=== PATIENT | male | born 1965 | race Caucasian/White ===

== ENCOUNTER 2016-10-14 11:21 | Inpatient (IN) | payer OTHER ==
[2016-10-14] MEDS ORDERED: NS 0.9% 1000 ML* 2,000 ML IV ONE (12:36)
[2016-10-14] MEDS ORDERED: Morphine INJ* 4 MG/ML 1 ML SYRINGE IV ONE (12:37)
[2016-10-14] MEDS ORDERED: Ondansetron INJ* 2 MG/ML VIAL IV ONE (12:37)
[2016-10-14 12:52] LABS: Hematocrit 41 % (42-52); Hemoglobin 14.6 g/dl (14.0-18.0); Mean Corpuscular HGB Conc 35 g/dl (31-36); Mean Corpuscular Hemoglobin 34 pg (27-31); Mean Corpuscular Volume 97 fL (80-94); Mean Platelet Volume 8 um3 (7.4-10.4); Red Blood Count 4.29 10^6/ul (4.0-5.4); Red Cell Distribution Width 14 % (10.5-15); White Blood Count 11.1 10^3/ul (3.5-10.8)
[2016-10-14 13:08] LABS: ALT 10 U/L (7-52); AST 14 U/L (13-39); Albumin 3.9 g/dL (3.2-5.2); Alkaline Phosphatase 56 U/L (34-104); Anion Gap 6 mmol/L (2-11); BUN/Creatinine Ratio 13.5 (8-20); Blood Urea Nitrogen 14 mg/dL (6-24); C Reactive Protein 10.74 mg/L (< 5.00); CO2 Carbon Dioxide 31 mmol/L (22-32); Calcium 9.6 mg/dL (8.6-10.3); Chloride 100 mmol/L (101-111); EGFR African American 96.1 (>60); EGFR Non-African American 74.7 (>60); Globulin 2.7 g/dL (2-4); Glucose 114 mg/dL (70-100); Lipase 19 U/L (11.0-82.0); Magnesium 1.4 mg/dL (1.9-2.7); Potassium 4.3 mmol/L (3.5-5.0); Sodium 137 mmol/L (133-145); Total Protein 6.6 g/dL (6.4-8.9)
[2016-10-14 13:12] LABS: Troponin I 0.05 ng/mL (<0.04)
[2016-10-14] MEDS ORDERED: Iohexol 300* (CONTRAST) 10 ML SDV IV ONE (14:43)
--- NOTE | 2016-10-14 15:49 | RAD ---
CLINICAL HISTORY: Abdominal pain and vomiting. Relevant surgical history includes cholecystectomy. COMPARISON: Multiple previous CT examinations, most recently dated March 14, 2015 TECHNIQUE: Contrast enhanced CT examination of the abdomen and pelvis from the lung bases through the initial tuberosities. The patient received 127 mL Omnipaque 300 intravenously prior to imaging.The patient received oral contrast as well prior to imaging. FINDINGS: VISUALIZED LUNG BASES: The visualized lung bases are grossly clear. There is no pleural effusion. ABDOMEN AND PELVIS: The liver, spleen, pancreas and adrenal glands are grossly normal in appearance. The gallbladder is surgically absent. The kidneys are normal in appearance without focal mass, calcification or signs of hydronephrosis. Evaluation of the gastrointestinal tract is limited without oral contrast. The proximal small bowel is mildly dilated measuring up to 3.3 cm in diameter. In the distal ileum at the right lower quadrant (image 62 on the axial images for example) there is partially gas-filled contents in the small bowel consistent with "fecalization". There appears to be a transition point just distal to this portion of bowel with the small bowel goes from being dilated to decompressed (axial image [id number]). Distally the small bowel is mostly decompressed. The colon is mostly decompressed as well with a small amount of gas and stool throughout the lumen. The distal colon and rectosigmoid colon exhibits innumerable diverticula but no focal inflammatory changes characteristic of acute diverticulitis. There is distention of the mesenteric root and infiltration of the mesenteric fat potentially creating the appearance of a "comb sign" (coronal image 40 through 44). There is trace ascites in the pelvis adjacent to the mildly dilated small bowel (for example axial image 44) and in the pelvis (axial image 72). There are no pathologically enlarged mesenteric or retroperitoneal lymph nodes. The pelvic viscera is normal in appearance. The mildly calcified abdominal aorta and iliac arteries are normal in course and diameter. Degenerative changes include multilevel loss of intervertebral disc height involving the lower thoracic and lumbar spine.There are no sinister bone lesions. IMPRESSION: 1. Mild proximal small bowel dilatation with a potential transition point identified at the right of midline lower abdomen as described in more detail in the body the report. Proximal to this transition point there is mild dilatation as well as "fecalization" of the distal small bowel contents. 2. Inflammatory change of the peritoneal cavity includes distention of the mesenteric root and trace ascites. Infectious or inflammatory etiologies should be considered in addition to partial small bowel obstruction. 3. Additional chronic, degenerative and iatrogenic changes described in the body of the report.
[2016-10-14 15:58] LABS: Urine Bilirubin Negative (Negative); Urine Glucose Negative (Negative); Urine Nitrite Negative (Negative)
[2016-10-14] MEDS ORDERED: Magnesium Sulf 4 GM/100 ML IV* 4,000 MG/100 ML BAG IVPB ONE (16:00)
[2016-10-14 16:28] LABS: Alcohol < 10 mg/dL (<10)
--- NOTE | 2016-10-14 16:30 | ED ---
Jose Enrique Unger Benjamin, scribed for Arnol Rojas MD on 10/14/16 at 1148 . Abdominal Pain/Male - HPI Summary HPI Summary: 51yo male c/o diffuse abdominal pain since yesterday. Pt states that the pain is 6/10 scale, and is mostly in the umbilical area that radiates down to suprapubic region. Pt has vomited up brown liquidly vomits since yesterday as well. Did not pass any gas, but reports having a BM in the middle of the night. PSMHx of osvaldo, hiatal hernia repair, and PMHx of diverticulitis and SBO. Appendix is still intact. - History of Current Complaint Chief Complaint: EDAbdPain Stated Complaint: ABD PAIN,VOMITING Time Seen by Provider: 10/14/16 11:28 Hx Obtained From: Patient Onset/Duration: Gradual Onset, Lasting Hours, Still Present Timing: Constant Severity Initially: Moderate Severity Currently: Moderate Pain Intensity: 6 Pain Scale Used: 0-10 Numeric Location: Umbilical Radiates: Yes Radiates to: Other - suprapubic Aggravating Factor(s): Nothing Alleviating Factor(s): Nothing Associated Signs And Symptoms: Positive: Diaphoresis, Vomiting - Allergies/Home Medications Allergies/Adverse Reactions: Allergies Allergy/AdvReac Type Severity Reaction Status Date / Time Barium Allergy Severe HIVES AND Verified 10/14/16 11:37 VOMITING Foll[place]bee Blue FCF Allergy Severe Swelling Verified 10/14/16 13:01 [From Tylenol Cold and Flu Of Severe Daytime] Face,Lips,& Throat Dextromethorphan Allergy Severe Swelling Verified 10/14/16 13:02 [From Tylenol Cold and Flu Of Severe Daytime] Face,Lips,& Throat Polyethylene Glycol Allergy Severe Swelling Verified 10/14/16 13:02 [From Tylenol Cold and Flu Of Severe Daytime] Face,Lips,& Throat Propylene Glycol Allergy Severe Swelling Verified 10/14/16 13:02 [From Tylenol Cold and Flu Of Severe Daytime] Face,Lips,& Throat Pseudoephedrine Allergy Severe Swelling Verified 10/14/16 13:01 [From Tylenol Cold and Flu Of Severe Daytime] Face,Lips,& Throat Sulfa Drugs Allergy Severe Anaphylatic Verified 10/14/16 11:37 Shock Hydromorphone [From Dilaudid] Allergy Difficulty Verified 10/14/16 11:37 Swallowing PMH/Surg Hx/FS Hx/Imm Hx Endocrine/Hematology History: Denies: Hx Diabetes Cardiovascular History: Reports: Hx Angina, Hx Congestive Heart Failure, Hx Hypercholesterolemia, Hx Hypertension, Hx Myocardial Infarction - WAAS TOLD HE HAD SCARRING ON HEART, Hx Syncope, Hx Valvular Heart Disease - mitral valve prolapse, Other Cardiovascular Problems/Disorders - "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 Respiratory History: Reports: Hx Chronic Obstructive Pulmonary Disease (COPD) GI History: Reports: Hx Diverticulosis, Hx Gall Bladder Disease, Hx Gastroesophageal Reflux Disease, Hx Ulcer, Other GI Disorders - diverticulousis , cholecystectomy, hernia repair, SBO History: Reports: Hx Kidney Stones Denies: Hx Renal Disease Musculoskeletal History: Reports: Hx Arthritis - rheumatoid, Hx Rheumatoid Arthritis, Other Musculoskeletal History - hx gangrene bilateral lower extremities Sensory History: Reports: Hx Cataracts - removed, Hx Contacts or Glasses Opthamlomology History: Reports: Hx Cataracts - removed, Hx Contacts or Glasses Neurological History: Reports: Hx Migraine, Hx Nerve Disease Comment Only: Other Neuro Impairments/Disorders - subdural hematoma Psychiatric History: Reports: Hx Anxiety, Hx Depression - Cancer History Cancer Type, Location and Year: 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, 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 Hx Chemotherapy: No - Surgical History Surgery Procedure, Year, and Place: debridemant on both legs, cholecystectomy, hernia repair, cataract on both eyes Infectious Disease History: Denies: Hx Clostridium Difficile, Hx Hepatitis, Hx Human Immunodeficiency Virus (HIV), Hx of Known/Suspected MRSA, Hx Shingles, Hx Tuberculosis, Hx Known/ Suspected VRE, Hx Known/Suspected VRSA, History Other Infectious Disease, Traveled Outside the [place] in Last 30 Days - Family History Known Family History: Positive: Cardiac Disease, Diabetes - possibly Negative: Hypertension - Social History Occupation: Disabled Lives: With Family Alcohol Use: Daily Alcohol Amount: one-fifth whiskey, case beer, vodka drinks q day Substance Use Type: Reports: None Smoking Status (MU): Heavy Every Day Tobacco Smoker Review of Systems Positive: Skin Diaphoresis Eyes: Negative ENT: Negative Cardiovascular: Negative Respiratory: Negative Positive: Abdominal Pain, Vomiting Genitourinary: Negative Musculoskeletal: Negative Skin: Negative Neurological: Negative Psychological: Normal All Other Systems Reviewed And Are Negative: Yes Physical Exam Triage Information Reviewed: Yes Vital Signs On Initial Exam: Initial Vitals Temp Pulse Resp BP Pulse Ox 97.4 F 88 16 128/76 99 10/14/16 11:23 10/14/16 11:23 10/14/16 11:23 10/14/16 11:23 10/14/16 11:23 Vital Signs Reviewed: Yes Appearance: Positive: Well-Nourished, Ill-Appearing, Pain Distress - mild pain distress Skin: Positive: Warm, Skin Color Reflects Adequate Perfusion, Dry Head/Face: Positive: Normal Head/Face Inspection Eyes: Positive: Normal ENT: Positive: Normal ENT inspection, Hearing grossly normal Neck: Positive: Supple, Nontender Respiratory/Lung Sounds: Positive: Clear to Auscultation, Breath Sounds Present Cardiovascular: Positive: RRR Abdomen Description: Positive: Soft, Other: - tympanitic abdomen, diffuse abdominal tenderness Bowel Sounds: Positive: Hyperactive - high pitch hyperactive bowel sounds Musculoskeletal: Positive: Strength/ROM Intact Neurological: Positive: Sensory/Motor Intact, Alert, Oriented to Person Place, Time, CN Intact II-III Psychiatric: Positive: Affect/Mood Appropriate Diagnostics - Vital Signs Vital Signs Temp Pulse Resp BP Pulse Ox 10/14/16 11:23 97.4 F 88 16 128/76 99 - Laboratory Lab Results: Lab Results 10/14/16 10/14/16 10/14/16 Range/Units 12:42 12:42 12:42 WBC 11.1 H (3.5-10.8) 10^3/ul RBC 4.29 (4.0-5.4) 10^6/ul Hgb 14.6 (14.0-18.0) g/dl Hct 41 L (42-52) % MCV 97 H (80-94) fL MCH 34 H (27-31) pg MCHC 35 (31-36) g/dl RDW 14 (10.5-15) % Plt Count 182 (150-450) 10^3/ul MPV 8 (7.4-10.4) um3 Neut % (Auto) 80.7 (38-83) % Lymph % (Auto) 12.2 L (25-47) % [place] % (Auto) 6.1 (1-9) % Eos % (Auto) 0.4 (0-6) % Baso % (Auto) 0.6 (0-2) % Absolute Neuts (auto) 8.9 H (1.5-7.7) 10^3/ul Absolute Lymphs (auto) 1.3 (1.0-4.8) 10^3/ul Absolute Monos (auto) 0.7 (0-0.8) 10^3/ul Absolute Eos (auto) 0 (0-0.6) 10^3/ul Absolute Basos (auto) 0.1 (0-0.2) 10^3/ul Absolute Nucleated RBC 0 10^3/ul Nucleated RBC % 0 INR (Anticoag Therapy) 1.06 (0.89-1.11) APTT 27.8 (26.0-36.3) seconds Sodium 137 (133-145) mmol/L Potassium 4.3 (3.5-5.0) mmol/L Chloride 100 L (101-111) mmol/L Carbon Dioxide 31 (22-32) mmol/L Anion Gap 6 (2-11) mmol/L BUN 14 (6-24) mg/dL Creatinine 1.04 (0.67-1.17) mg/dL Est GFR ( Amer) 96.1 (>60) Est GFR (Non-Af Amer) 74.7 (>60) BUN/Creatinine Ratio 13.5 (8-20) Glucose 114 H (70-100) mg/dL Lactic Acid (0.5-2.0) mmol/L Calcium 9.6 (8.6-10.3) mg/dL Magnesium 1.4 L (1.9-2.7) mg/dL Total Bilirubin 1.20 H (0.2-1.0) mg/dL AST 14 (13-39) U/L ALT 10 (7-52) U/L Alkaline Phosphatase 56 (34-104) U/L Troponin I 0.05 H* (<0.04) ng/mL C-Reactive Protein 10.74 H (< 5.00) mg/L Total Protein 6.6 (6.4-8.9) g/dL Albumin 3.9 (3.2-5.2) g/dL Globulin 2.7 (2-4) g/dL Albumin/Globulin Ratio 1.4 (1-3) Lipase 19 (11.0-82.0) U/L Urine Color Urine Appearance Urine pH (5-9) Ur Specific [place] (1.010-1.030) Urine Protein (Negative) Urine Ketones (Negative) Urine Blood (Negative) Urine Nitrate (Negative) Urine Bilirubin (Negative) Urine Urobilinogen (Negative) Ur Leukocyte Esterase (Negative) Urine Glucose (Negative) Serum Alcohol < 10 (<10) mg/dL 10/14/16 10/14/16 Range/Units 12:42 15:50 WBC (3.5-10.8) 10^3/ul RBC (4.0-5.4) 10^6/ul Hgb (14.0-18.0) g/dl Hct (42-52) % MCV (80-94) fL MCH (27-31) pg MCHC (31-36) g/dl RDW (10.5-15) % Plt Count (150-450) 10^3/ul MPV (7.4-10.4) um3 Neut % (Auto) (38-83) % Lymph % (Auto) (25-47) % [place] % (Auto) (1-9) % Eos % (Auto) (0-6) % Baso % (Auto) (0-2) % Absolute Neuts (auto) (1.5-7.7) 10^3/ul Absolute Lymphs (auto) (1.0-4.8) 10^3/ul Absolute Monos (auto) (0-0.8) 10^3/ul Absolute Eos (auto) (0-0.6) 10^3/ul Absolute Basos (auto) (0-0.2) 10^3/ul Absolute Nucleated RBC 10^3/ul Nucleated RBC % INR (Anticoag Therapy) (0.89-1.11) APTT (26.0-36.3) seconds Sodium (133-145) mmol/L Potassium (3.5-5.0) mmol/L Chloride (101-111) mmol/L Carbon Dioxide (22-32) mmol/L Anion Gap (2-11) mmol/L BUN (6-24) mg/dL Creatinine (0.67-1.17) mg/dL Est GFR ( Amer) (>60) Est GFR (Non-Af Amer) (>60) BUN/Creatinine Ratio (8-20) Glucose (70-100) mg/dL Lactic Acid 1.0 (0.5-2.0) mmol/L Calcium (8.6-10.3) mg/dL Magnesium (1.9-2.7) mg/dL Total Bilirubin (0.2-1.0) mg/dL AST (13-39) U/L ALT (7-52) U/L Alkaline Phosphatase (34-104) U/L Troponin I (<0.04) ng/mL C-Reactive Protein (< 5.00) mg/L Total Protein (6.4-8.9) g/dL Albumin (3.2-5.2) g/dL Globulin (2-4) g/dL Albumin/Globulin Ratio (1-3) Lipase (11.0-82.0) U/L Urine Color Straw Urine Appearance Clear Urine pH 7.0 (5-9) Ur Specific [place] 1.024 (1.010-1.030) Urine Protein Negative (Negative) Urine Ketones Negative (Negative) Urine Blood Negative (Negative) Urine Nitrate Negative (Negative) Urine Bilirubin Negative (Negative) Urine Urobilinogen Negative (Negative) Ur Leukocyte Esterase Negative (Negative) Urine Glucose Negative (Negative) Serum Alcohol (<10) mg/dL Result Diagrams: 10/14/16 12:42 10/14/16 12:42 Lab Statement: Any lab studies that have been ordered have been reviewed, and results considered in the medical decision making process. - CT CT A/P W CT Interpretation: Positive (See Comments) - IMPRESSION: 1. Mild proximal small bowel dilatation with a potential transition point identified at the right of midline lower abdomen as described in more detail in the body the report. Proximal to this transition point there is mild dilatation as well as "fecalization" of the distal small bowel contents. 2. Inflammatory change of the peritoneal cavity includes distention of the mesenteric root and trace ascites. Infectious or inflammatory etiologies should be considered in addition to partial small bowel obstruction. 3. Additional chronic, degenerative and iatrogenic changes described in the body of the report. CT Interpretation Completed By: Radiologist Abdominal Pain Fem Course/Dx - Course Course Of Treatment: NO CRITICAL CARE TIME. ADMIT HOSPITALIST STABLE. - Diagnoses Provider Diagnoses: SBO (small bowel obstruction) Discharge - Discharge Plan Condition: Stable Disposition: ADMITTED TO [facility] Referrals: Luis MILNER,Micki [Primary Care Provider] - The documentation as recorded by the Jose Enrique pereira Benjamin accurately reflects the service I personally performed and the decisions made by me, Arnol Rojas MD.
[2016-10-14] MEDS ORDERED: Thiamine IV* 100 MG/ML 2 ML VIAL IM ONE (16:33)
[2016-10-14] MEDS ORDERED: Diazepam TAB(*) 10 MG PO PRN (16:33)
[2016-10-14] MEDS ORDERED: Albuterol HFA INHALER* 8 gm MDI INH PRN (16:35)
[2016-10-14] MEDS: Latanoprost 0.005%* 2.5 ml BTL LEFT EYE SCH (21:10)
[2016-10-14] MEDS: Timolol 0.5% OPTH.SOL* BTL BOTH EYES SCH (21:10)
[2016-10-14] MEDS: Ondansetron INJ* 2 MG/ML VIAL IV PRN (21:11)
[2016-10-14] MEDS: Morphine INJ* 2 MG/ML 1 ML SYRINGE IV PRN (21:11)
[2016-10-14] MEDS: Heparin VIAL(*) 5000 UNITS/ML VIAL (FIVE THOUSAND) SUBCUT SCH (21:19)
--- NOTE | 2016-10-15 02:13 | HP ---
CC: Micki Smith NP* ADMISSION HISTORY AND PHYSICAL: DATE OF ADMISSION: 10/14/16 PRIMARY CARE PROVIDER: Micki Smith NP HEALTHCARE PROXY: Mora, his girlfriend. CODE STATUS: Full. SOURCE OF INFORMATION: History obtained from interview with the patient and his girlfriend, review of recent past medical records. RELIABILITY: Fair from the patient and his girlfriend, excellent from records. CHIEF COMPLAINT: Abdominal pain, nausea, and vomiting. 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 Now, he is drinking 24 ounce cans of canned llanes coladas until the night prior to admission, developed worsening abdominal pain, epigastric in region, radiating down towards his pelvis, described as sharp, lasting for 1 to 20 minutes with associated frequent vomiting of brown emesis. The patient was unable to put a number as to how many times he has vomited. His last bowel movement was the day prior to presentation. His last flatus was the day prior to presentation. He tried to take an oxycodone that he had in his home, however, was unable to tolerate, vomited up, and had continued pain. He has noticed his pain felt similar to the past episodes of diverticulitis, however, more severe. His last food that he tolerated was yesterday afternoon and he has not had much. He denies any fevers, chills, or night sweats. Positive for nausea, vomiting, and abdominal pain. No chest pain which he has experienced in the past. No shortness of breath, lightheadedness, loss of consciousness, changes in vision, or bleeding from any source. PAST MEDICAL HISTORY: 1. Narcotic withdrawal. 2. Alcohol abuse with recent withdrawal. 3. Suspected COPD on previous presentations. 4. BPH. 5. Glaucoma. 6. Hypertension. 7. Anxiety. 8. GERD. 9. CAD with history of MD reported. 10. Rheumatoid arthritis. 11. Neuropathy. 12. 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 13. Diverticulitis. PAST SURGICAL HISTORY: Includes: 1. Lower extremity surgery secondary to gangrene. 2. Cataract surgery. 3. Hernia repair. 4. Cholecystectomy. MEDICATIONS: At discharge from last hospital stay included: 1. Flexeril 10 mg 3 times daily as needed. 2. Potassium chloride 10 mEq twice daily. 3. Timolol eye drops 2 drops both eyes twice daily. 4. Omeprazole 40 mg daily. 5. Travoprost 1 drop left eye at bedtime. 6. Flomax 0.4 mg daily. 7. Xanax 1 mg 3 times a day as needed for anxiety. 8. Meclizine 25 mg 4 times a day as needed for dizziness. 9. Imodium 2 mg after each loose stool. 10. Albuterol HFA 2 puffs inhaled every 4 hours as needed for shortness of breath. The patient does not endorse any changes to medications since last discharge. ALLERGIES: BARIUM, BRILLIANT BLUE FCF, DEXTROMETHORPHAN, TYLENOL COLD AND FLU, also including POLYETHYLENE GLYCOL, PSEUDOEPHEDRINE, SULFA DRUGS, and HYDROMORPHONE, although tolerates morphine. FAMILY HISTORY: Father with CAD. SOCIAL HISTORY: Smokes one half pack per day for the last 35 years. Heavy alcohol use. Denies any alcohol in the last 1 to 2 weeks. Previous opioid use disorder, unclear quantity, still consumes, it is unclear how much he is still consuming. REVIEW OF SYSTEMS: As per HPI. Otherwise, all other systems negative. PHYSICAL EXAMINATION GENERAL: Sitting up in bed, grossly tremulous, in no apparent distress. He is diaphoretic. VITAL SIGNS: In the emergency room, 124/73, heart rate 72, respiratory rate is 18, 96% on room air, T-max in the emergency room 97.4. HEENT: Oropharynx is clear. He has poor dentition. Moist mucous membranes. Sclerae are anicteric. NECK: Non-elevated JVD. LUNGS: Clear to auscultation. HEART: He has regular rate and rhythm. Soft systolic ejection murmur. ABDOMEN: Soft. He has tenderness to palpation in the left lower quadrant. He is nondistended. He has hypoactive bowel sounds. No rebound or guarding. EXTREMITIES: Warm and well perfused. No clubbing, cyanosis, or edema. NEUROLOGIC: He is alert and oriented x3. He has gross tremor in his arms at rest and with them outstretched. LABORATORY DATA: Reviewed. Notable for white blood cell count of 11.1, hemoglobin 14.6. INR 1.0. BUN 14, creatinine 1.04. Troponin I 0.05. CRP 10.7. Serum toxicology negative for alcohol. DIAGNOSTIC STUDIES: Data reviewed. CT abdomen and pelvis, impression: Mild proximal small bowel dilatation with a potential transition point identified at the right of the midline. Lower abdomen is described in more detail in the body of the report. Proximal to the transition point, there is mild dilatation as well as "fecalization" of the distal small bowel contents. Inflammatory change at the peritoneal cavity includes distention of the mesenteric root and trace ascites. Infectious or inflammatory etiology should be considered in addition to the small bowel obstruction. Additional chronic, degenerative and iatrogenic changes in the body are reported. EKG is ordered urgently and pending in the ED to be reviewed by this author. ASSESSMENT AND PLAN: This is a 51-year-old man with past medical history of chronic abdominal pain, with recurrent nausea and vomiting, normal gastric emptying study in April 2016, felt worsening abdominal pain with associated nausea and vomiting who presented to the hospital with suspected partial small bowel obstruction. 1. Abdominal pain, suspect in the setting of his partial small bowel obstruction, although there is some evidence of inflammation on the CAT scan. No evidence of infection or inflammation systemically other than mildly elevated white blood cell count and CRP. We will hold on antibiotics at this time and monitor for resolution of white blood cell count and development of any fevers. The patient will be n.p.o. for small bowel obstruction with morphine as needed for pain and Zofran IV as well for nausea. We will obtain a surgical consultation to follow his care should he progress to need surgical intervention. 2. Elevated troponin. Suspect demand in the setting of partial small bowel obstruction. Check EKG now and trend to resolution. 3. Alcohol dependence and abuse. Suspect withdrawal at this time in the setting of active use and gross tremor. Place the patient on a WAM protocol with diazepam IV. Titrate if possible. Additional cessation counseling is offered. 4. Suspected chronic obstructive pulmonary disease, not uncontrolled on medications. Albuterol p.r.n. as needed. Not in exacerbation. 5. Glaucoma. Continue eye drops as per home medications. 6. DVT prophylaxis: Heparin subcu. 7. Code status is full. [id number]/CPS #: [id number] [id number]
[2016-10-15] MEDS: Morphine INJ* 2 MG/ML 1 ML SYRINGE IV PRN ×3 (03:17→13:57)
[2016-10-15] MEDS: Diazepam TAB(*) 2 MG PO PRN (03:35)
--- NOTE | 2016-10-15 04:11 | CONS ---
CC: Micki Smith NP, [facility] * CONSULTATION REPORT: DATE OF CONSULT/DICTATION: 10/14/16 REFERRING PROVIDER: Dr. Ino Alfaro. REASON FOR CONSULTATION: Abdominal pain, nausea and vomiting. HISTORY OF PRESENT ILLNESS: Mr. Uriel Bates is a 51-year-old gentleman with multiple medical issues, is somewhat of a poor historian, who presented to the emergency room with 24 hours of abdominal pain as well as nausea and vomiting. He has a history of significant heavy alcohol abuse and also has problems with apparent cyclic vomiting. He has undergone a gastric emptying study earlier this year, which was unremarkable and this was ordered by Dr. Karla Rivera from the [facility], software support specialist. He states he obviously has problems with nausea and vomiting; however, since yesterday he has had some more consistent vomiting with solid food and some brown liquid. He states he had a bowel movement last night, passed gas early this morning, the last he has done of that. He feels this is different than his usual illness and he presented to the emergency room. He has had no fevers, shakes, or chills. He has had no urinary complaints, but there is no back discomfort. When seen in the emergency room, he was noted to be afebrile with normal vital signs. White blood cell count was 11,000 with a hemoglobin of 14. Electrolytes were within normal limits. Total bilirubin 1.2 with normal liver transaminase. He had mild elevation of his troponin to 0.05. C-reactive protein 10.75. Lipase was normal. He underwent a CT scan of the abdomen and pelvis. I did review this study. This was done with both oral and IV contrast. This does show some mild proximal small bowel dilation with a concern for possible transition point in the right lower middle of the abdomen. Also noted is what is described as "fecalization" in the small bowel in the area of this possible transition zone. There is a small amount of free pelvic fluid. No other acute findings were noted. The patient is being admitted to the hospitalist service and surgical consultation was obtained. It should be noted that the majority of the history is obtained from the previous records as the patient is quite a poor historian. PAST MEDICAL HISTORY: 1. Ethanol abuse. 2. Hypertension. 3. Anxiety. 4. Glaucoma. 5. Gastroesophageal reflux disease. 6. History of myocardial infarction. 7. Rheumatoid arthritis. 8. Neuropathy. 9. History of obstructive lung disease. PAST SURGICAL HISTORY: Laparoscopic cholecystectomy. He has also had infection in both lower extremities for an incision and drainage of abscesses. ALLERGIES: He is allergic to BARIUM, TYLENOL COLD and FLU, SULFA DRUGS, and DILAUDID. MEDICINES AT HOME: Include: 1. Compazine. 2. Prilosec. 3. Meclizine. 4. Prinivil. 5. Zyrtec. 6. Ventolin. 7. Xanax. SOCIAL HISTORY: He lives alone. He smokes. Drinks alcohol, but states he has abstained over the past several weeks. REVIEW OF SYSTEMS: Otherwise is difficult to obtain from the patient as he is a poor historian. PHYSICAL EXAMINATION: Temperature 98.1, pulse 68, blood pressure 122/81. In general, he is an unkempt male with a slight intention tremor. He is awake, alert and oriented to person, place, and time. His lungs were clear to auscultation with normal respiratory effort. Heart was regular rate and rhythm without murmurs, rubs, or gallops. Abdomen is soft, slightly distended. He has a laparoscopic incision in the upper right abdomen without hernias. He had bowel sounds that are normoactive throughout. They are not high pitched or tinkling. He has some mild generalized abdominal tenderness without rebound, guarding, peritoneal signs. I appreciate no hernias. IMPRESSION: Abdominal pain with nausea and vomiting. He apparently has problems with nausea and has undergone extensive workup from a software support specialist at the [facility]. We do not have these records and I am not certain when his last colonoscopy was. CT scan does show concern for some proximally dilated small bowel with some fecalization, which may be indicative of a small bowel obstruction. Certainly this could be due to adhesions, although this appears to be lower in the abdomen from what would be expected from a laparoscopic approach, but certainly this could be a primary issue. There does not appear to be a mass or small bowel abnormality to suggest otherwise. PLAN: 1. The patient has been admitted to the medical service. 2. He has been kept NPO and started on IV fluids. 3. Nasogastric tube will not be inserted unless he has problems with nausea or persistent vomiting. 4. Repeat laboratory values and abdominal x-rays on a daily basis. At this point, he does not have an indication for any urgent or emergent surgical indication, but we will follow him closely over the next several days, and hopefully, this will resolve with nonoperative management. [id number]/[facility] #: [id number] KYREE
[2016-10-15] MEDS: Heparin VIAL(*) 5000 UNITS/ML VIAL (FIVE THOUSAND) SUBCUT SCH ×3 (05:46→22:13)
[2016-10-15] MEDS: NS 0.9% 1000 ML* 1,000 ML IV SCH ×2 (05:46→22:10)
[2016-10-15] MEDS: Ondansetron INJ* 2 MG/ML VIAL IV PRN (06:03)
[2016-10-15 06:23] LABS: Hematocrit 40 % (42-52); Hemoglobin 13.8 g/dl (14.0-18.0); Mean Corpuscular HGB Conc 35 g/dl (31-36); Mean Corpuscular Hemoglobin 34 pg (27-31); Mean Corpuscular Volume 99 fL (80-94); Mean Platelet Volume 9 um3 (7.4-10.4); Red Blood Count 4.05 10^6/ul (4.0-5.4); Red Cell Distribution Width 14 % (10.5-15); White Blood Count 10.6 10^3/ul (3.5-10.8)
[2016-10-15 06:37] LABS: BUN/Creatinine Ratio 16.3 (8-20); Calcium 9.2 mg/dL (8.6-10.3); EGFR African American 102.9 (>60); Potassium 3.7 mmol/L (3.5-5.0)
[2016-10-15] MEDS: Pantoprazole IV* 40 MG IV SCH (06:45)
--- NOTE | 2016-10-15 09:42 | RAD ---
INDICATION: Small bowel obstruction COMPARISON: CT October 14, 2016 TECHNIQUE: Erect and supine views of the abdomen are submitted. FINDINGS: Bones: There are no acute bony findings. Soft tissues: The soft tissues appear normal. The psoas margins are sharp. Bowel gas pattern: There are fluid-filled loops of small bowel with scattered air-fluid levels. There is residual contrast within the colon. Findings are compatible with a partial small bowel obstruction. Calcifications: There are no abnormal calcifications. Other: None IMPRESSION: PARTIAL SMALL BOWEL OBSTRUCTION. NO SIGNIFICANT RADIOGRAPHIC CHANGE RELATIVE TO THE BOILER SETTER FILM FROM THE CT FROM THE PREVIOUS DAY.
[2016-10-15] MEDS: Multivitamins/Minerals TAB PO SCH (10:27)
[2016-10-15] MEDS: Timolol 0.5% OPTH.SOL* BTL BOTH EYES SCH ×2 (10:27→22:16)
--- NOTE | 2016-10-15 13:06 | PN ---
Progress Note - Progress Note Date of Service: 10/15/16 SOAP: Subjective: Having less abdominal pain but has had no BM or flatus Had a small amount of emesis earlier this morning-"about a cup" of dark fluid Ambulating in the halls Objective: Temp Pulse Resp BP Pulse Ox 98.0 F 59 16 110/69 96 10/15/16 11:00 10/15/16 11:00 10/15/16 11:00 10/15/16 11:00 10/15/16 11:00 PEX: Comfortable Abd is soft and slightly distended. Bowel sounds are present and are hyperactive but not high pitched or tinkling. He has some mild generalized tenderness without guarding or rebound. AXR shows contrast into the large intestine with some dilated loops of small bowel. Assessment: Partial small bowel obstruction Plan: Continue observation for now-keep NPO and will check AXR in AM No indication for surgical intervention at present.
--- NOTE | 2016-10-15 17:50 | PN ---
Subjective Date of Service: 10/15/16 Interval History: seen and examined mild abdominal pain vomiting x 1 since admission but none this AM no BM, no flatus Objective Active Medications: Albuterol (Ventolin Hfa Inhaler*) 2 puff INH Q4H PRN PRN Reason: SOB/WHEEZING Diazepam (Valium Tab(*)) 0 mg PO .PER WAM SCORE PRN; Protocol PRN Reason: AGITATION Last Admin: 10/15/16 03:35 Dose: 2 mg Heparin Sodium (Porcine) (Heparin Vial(*)) 5,000 units SUBCUT Q8HR [facility] Last Admin: 10/15/16 13:58 Dose: 5,000 units Sodium Chloride (Ns 0.9% 1000 Ml*) 1,000 mls @ 75 mls/hr IV PER RATE [facility] Last Admin: 10/15/16 05:46 Dose: 75 mls/hr Latanoprost (Xalatan 0.005%*) 1 drop LEFT EYE BEDTIME JOSE PRN Reason: Protocol Last Admin: 10/14/16 21:10 Dose: 1 drop Morphine Sulfate (Morphine Inj (Syringe)*) 2 mg IV Q4H PRN PRN Reason: PAIN Last Admin: 10/15/16 13:57 Dose: 2 mg Multivitamins/Minerals (Theragran/Minerals Tab*) 1 tab PO DAILY [facility] Last Admin: 10/15/16 10:27 Dose: 1 tab Ondansetron HCl (Zofran Inj*) 4 mg IV Q4H PRN PRN Reason: NAUSEA/VOMITING Last Admin: 10/15/16 06:03 Dose: 4 mg Pantoprazole Sodium (Protonix Iv*) 40 mg IV Q24H [facility] Last Admin: 10/15/16 06:45 Dose: 40 mg Timolol Maleate (Timoptic 0.5% Opth*) 2 drop BOTH EYES BID [facility] Last Admin: 10/15/16 10:27 Dose: 2 drop Vital Signs 10/15/16 10/15/16 10/15/16 11:00 13:50 13:57 Temperature 98.0 F 98.7 F Pulse Rate 59 56 Respiratory 16 16 16 Rate Blood Pressure 110/69 113/66 (mmHg) O2 Sat by Pulse 96 97 Oximetry 10/15/16 10/15/16 14:57 15:49 Temperature 98.5 F Pulse Rate 62 Respiratory 16 22 Rate Blood Pressure 124/67 (mmHg) O2 Sat by Pulse 97 Oximetry Oxygen Devices in Use Now: None Appearance: tremulous, NAD Eyes: No Scleral Icterus, PERRLA Ears/Nose/Mouth/Throat: Clear Oropharnyx, Mucous Membranes Moist Neck: NL Appearance and Movements; NL JVP, Trachea Midline Respiratory: Symmetrical Chest Expansion and Respiratory Effort, Clear to Auscultation Cardiovascular: RRR Abdominal: - - soft, mild distention, +bs, no rebound/guarding Extremities: No Edema Skin: No Rash or Ulcers Neurological: Alert and Oriented x 3 Result Diagrams: 10/15/16 05:46 10/15/16 05:45 Additional Lab and Data: Lab Results 10/14/16 10/14/16 10/14/16 Range/Units 12:42 12:42 12:42 WBC 11.1 H (3.5-10.8) 10^3/ul RBC 4.29 (4.0-5.4) 10^6/ul Hgb 14.6 (14.0-18.0) g/dl Hct 41 L (42-52) % MCV 97 H (80-94) fL MCH 34 H (27-31) pg MCHC 35 (31-36) g/dl RDW 14 (10.5-15) % Plt Count 182 (150-450) 10^3/ul MPV 8 (7.4-10.4) um3 Neut % (Auto) 80.7 (38-83) % Lymph % (Auto) 12.2 L (25-47) % [place] % (Auto) 6.1 (1-9) % Eos % (Auto) 0.4 (0-6) % Baso % (Auto) 0.6 (0-2) % Absolute Neuts (auto) 8.9 H (1.5-7.7) 10^3/ul Absolute Lymphs (auto) 1.3 (1.0-4.8) 10^3/ul Absolute Monos (auto) 0.7 (0-0.8) 10^3/ul Absolute Eos (auto) 0 (0-0.6) 10^3/ul Absolute Basos (auto) 0.1 (0-0.2) 10^3/ul Absolute Nucleated RBC 0 10^3/ul Nucleated RBC % 0 INR (Anticoag Therapy) 1.06 (0.89-1.11) APTT 27.8 (26.0-36.3) seconds Sodium 137 (133-145) mmol/L Potassium 4.3 (3.5-5.0) mmol/L Chloride 100 L (101-111) mmol/L Carbon Dioxide 31 (22-32) mmol/L Anion Gap 6 (2-11) mmol/L BUN 14 (6-24) mg/dL Creatinine 1.04 (0.67-1.17) mg/dL Est GFR ( Amer) 96.1 (>60) Est GFR (Non-Af Amer) 74.7 (>60) BUN/Creatinine Ratio 13.5 (8-20) Glucose 114 H (70-100) mg/dL Lactic Acid (0.5-2.0) mmol/L Calcium 9.6 (8.6-10.3) mg/dL Magnesium 1.4 L (1.9-2.7) mg/dL Total Bilirubin 1.20 H (0.2-1.0) mg/dL AST 14 (13-39) U/L ALT 10 (7-52) U/L Alkaline Phosphatase 56 (34-104) U/L Troponin I 0.05 H* (<0.04) ng/mL C-Reactive Protein 10.74 H (< 5.00) mg/L Total Protein 6.6 (6.4-8.9) g/dL Albumin 3.9 (3.2-5.2) g/dL Globulin 2.7 (2-4) g/dL Albumin/Globulin Ratio 1.4 (1-3) Lipase 19 (11.0-82.0) U/L Urine Color Urine Appearance Urine pH (5-9) Ur Specific [place] (1.010-1.030) Urine Protein (Negative) Urine Ketones (Negative) Urine Blood (Negative) Urine Nitrate (Negative) Urine Bilirubin (Negative) Urine Urobilinogen (Negative) Ur Leukocyte Esterase (Negative) Urine Glucose (Negative) Serum Alcohol < 10 (<10) mg/dL 10/14/16 10/14/16 Range/Units 12:42 15:50 WBC (3.5-10.8) 10^3/ul RBC (4.0-5.4) 10^6/ul Hgb (14.0-18.0) g/dl Hct (42-52) % MCV (80-94) fL MCH (27-31) pg MCHC (31-36) g/dl RDW (10.5-15) % Plt Count (150-450) 10^3/ul MPV (7.4-10.4) um3 Neut % (Auto) (38-83) % Lymph % (Auto) (25-47) % [place] % (Auto) (1-9) % Eos % (Auto) (0-6) % Baso % (Auto) (0-2) % Absolute Neuts (auto) (1.5-7.7) 10^3/ul Absolute Lymphs (auto) (1.0-4.8) 10^3/ul Absolute Monos (auto) (0-0.8) 10^3/ul Absolute Eos (auto) (0-0.6) 10^3/ul Absolute Basos (auto) (0-0.2) 10^3/ul Absolute Nucleated RBC 10^3/ul Nucleated RBC % INR (Anticoag Therapy) (0.89-1.11) APTT (26.0-36.3) seconds Sodium (133-145) mmol/L Potassium (3.5-5.0) mmol/L Chloride (101-111) mmol/L Carbon Dioxide (22-32) mmol/L Anion Gap (2-11) mmol/L BUN (6-24) mg/dL Creatinine (0.67-1.17) mg/dL Est GFR ( Amer) (>60) Est GFR (Non-Af Amer) (>60) BUN/Creatinine Ratio (8-20) Glucose (70-100) mg/dL Lactic Acid 1.0 (0.5-2.0) mmol/L Calcium (8.6-10.3) mg/dL Magnesium (1.9-2.7) mg/dL Total Bilirubin (0.2-1.0) mg/dL AST (13-39) U/L ALT (7-52) U/L Alkaline Phosphatase (34-104) U/L Troponin I (<0.04) ng/mL C-Reactive Protein (< 5.00) mg/L Total Protein (6.4-8.9) g/dL Albumin (3.2-5.2) g/dL Globulin (2-4) g/dL Albumin/Globulin Ratio (1-3) Lipase (11.0-82.0) U/L Urine Color Straw Urine Appearance Clear Urine pH 7.0 (5-9) Ur Specific [place] 1.024 (1.010-1.030) Urine Protein Negative (Negative) Urine Ketones Negative (Negative) Urine Blood Negative (Negative) Urine Nitrate Negative (Negative) Urine Bilirubin Negative (Negative) Urine Urobilinogen Negative (Negative) Ur Leukocyte Esterase Negative (Negative) Urine Glucose Negative (Negative) Serum Alcohol (<10) mg/dL Assess/Plan/Problems-Billing Assessment: 51 yo M ho alcohol abuse, CAD, HTN p/w pSBO - Patient Problems (1) SBO (small bowel obstruction) Comment: appreciate surgery assistance NPO repeat ABX in AM (2) Alcohol dependence Comment: minumal valium use maintain WAM (3) HTN (hypertension) Comment: controlled off meds (4) DVT prophylaxis Comment: SQ heparin
[2016-10-15] MEDS: Latanoprost 0.005%* 2.5 ml BTL LEFT EYE SCH (22:15)
[2016-10-16] MEDS: Pantoprazole IV* 40 MG IV SCH (06:03)
[2016-10-16] MEDS: Heparin VIAL(*) 5000 UNITS/ML VIAL (FIVE THOUSAND) SUBCUT SCH ×3 (06:08→21:12)
--- NOTE | 2016-10-16 08:47 | RAD ---
INDICATION: Small bowel obstruction COMPARISON: Most recent comparison radiograph is dated October 15, 2016 TECHNIQUE: Supine and upright views of the abdomen were obtained. FINDINGS: On the upright views there are air-fluid levels seen throughout the colon and stomach. There is no free air beneath either diaphragm. Oral contrast, presumably from the October 14, 2016 CT examination is seen in the descending and rectosigmoid colon. No pathologically dilated loops of bowel are identified on the supine views. IMPRESSION: Persistent air-fluid levels are seen in the colon but there are no pathologically dilated loops of bowel according to radiographic criteria.
--- NOTE | 2016-10-16 08:55 | PN ---
Progress Note - Progress Note Date of Service: 10/16/16 SOAP: Subjective: Multiple loose BM's overnight and he is passing gas. No N/V Abdominal pain has resolved He would like to drink some liquids Objective: Temp Pulse Resp BP Pulse Ox 98.1 F 59 16 111/74 99 10/16/16 07:36 10/16/16 07:36 10/16/16 07:36 10/16/16 07:36 10/16/16 07:36 Intake & Output 10/14/16 10/15/16 10/16/16 10/17/16 06:59 06:59 06:59 06:59 Intake Total 1804 1000 Output Total 0 Balance 1804 1000 Weight 193 lb 1.6 oz Intake: IV Fluids 1804 1000 NS (0.9%) 1000 Oral 0 0 Output: Urine 0 Other: Estimated Void Small # Bowel Movements 0 1 Estimated Stool Amount Small # Voids 0 1 PEX: Abd is soft and non-distended. Bowel sounds are present throughout and are active but not high pitched or tinkling. There is no pain or tenderness on palpation. AXR 10/16 reviewed--contrast and air in colon--air filled loops of small bowel not evident. Assessment: Partial small bowel obstruction--resolving Plan: Start clear liquids today and follow--advance diet as tolerated.
[2016-10-16] MEDS: Diazepam TAB(*) 2 MG PO PRN (09:00)
[2016-10-16] MEDS: Multivitamins/Minerals TAB PO SCH (09:01)
[2016-10-16] MEDS: Timolol 0.5% OPTH.SOL* BTL BOTH EYES SCH ×2 (09:02→19:11)
--- NOTE | 2016-10-16 17:38 | PN ---
Subjective Date of Service: 10/16/16 Interval History: multiple BMS, +flatus no withdrawal symptoms. Requesting to d/c WAM Objective Active Medications: Albuterol (Ventolin Hfa Inhaler*) 2 puff INH Q4H PRN PRN Reason: SOB/WHEEZING Heparin Sodium (Porcine) (Heparin Vial(*)) 5,000 units SUBCUT Q8HR [facility] Last Admin: 10/16/16 14:45 Dose: 5,000 units Latanoprost (Xalatan 0.005%*) 1 drop LEFT EYE BEDTIME JOSE PRN Reason: Protocol Last Admin: 10/15/16 22:15 Dose: 1 drop Morphine Sulfate (Morphine Inj (Syringe)*) 2 mg IV Q4H PRN PRN Reason: PAIN Last Admin: 10/15/16 13:57 Dose: 2 mg Multivitamins/Minerals (Theragran/Minerals Tab*) 1 tab PO DAILY [facility] Last Admin: 10/16/16 09:01 Dose: 1 tab Ondansetron HCl (Zofran Inj*) 4 mg IV Q4H PRN PRN Reason: NAUSEA/VOMITING Last Admin: 10/15/16 06:03 Dose: 4 mg Pantoprazole Sodium (Protonix Iv*) 40 mg IV Q24H [facility] Last Admin: 10/16/16 06:03 Dose: 40 mg Timolol Maleate (Timoptic 0.5% Opth*) 2 drop BOTH EYES BID [facility] Last Admin: 10/16/16 09:02 Dose: 1 drop Vital Signs 10/15/16 10/15/16 10/15/16 18:00 19:51 20:04 Temperature 98.5 F 98.3 F Pulse Rate 59 59 Respiratory 22 20 18 Rate Blood Pressure 110/67 (mmHg) O2 Sat by Pulse 97 99 Oximetry 10/15/16 10/15/16 10/16/16 21:36 23:12 01:09 Temperature 98.1 F 98.3 F 98.0 F Pulse Rate 60 77 63 Respiratory 18 20 20 Rate Blood Pressure 123/72 104/43 103/64 (mmHg) O2 Sat by Pulse 98 96 97 Oximetry 10/16/16 10/16/16 10/16/16 03:03 03:17 05:15 Temperature 98.8 F 97.8 F Pulse Rate 63 60 64 Respiratory 20 20 Rate Blood Pressure 89/49 107/66 99/58 (mmHg) O2 Sat by Pulse 97 98 Oximetry 10/16/16 10/16/16 10/16/16 07:36 08:00 09:00 Temperature 98.1 F Pulse Rate 59 Respiratory 16 18 16 Rate Blood Pressure 111/74 (mmHg) O2 Sat by Pulse 99 Oximetry 10/16/16 10/16/16 10/16/16 09:05 10:58 11:00 Temperature 98.1 F 98.3 F Pulse Rate 56 54 Respiratory 18 18 16 Rate Blood Pressure 139/56 121/69 (mmHg) O2 Sat by Pulse 100 96 Oximetry 10/16/16 15:07 Temperature 97.6 F Pulse Rate 62 Respiratory 16 Rate Blood Pressure 121/62 (mmHg) O2 Sat by Pulse 100 Oximetry Oxygen Devices in Use Now: None Appearance: NAD Eyes: No Scleral Icterus, PERRLA Ears/Nose/Mouth/Throat: Clear Oropharnyx, Mucous Membranes Moist Neck: NL Appearance and Movements; NL JVP, Trachea Midline Respiratory: Symmetrical Chest Expansion and Respiratory Effort, Clear to Auscultation Cardiovascular: RRR Abdominal: NL Sounds; No Tenderness; No Distention Lymphatic: No Cervical Adenopathy Neurological: Alert and Oriented x 3, - - mildly tremulous Result Diagrams: 10/15/16 05:46 10/15/16 05:45 Additional Lab and Data: Lab Results 10/14/16 10/14/16 10/14/16 Range/Units 12:42 12:42 12:42 WBC 11.1 H (3.5-10.8) 10^3/ul RBC 4.29 (4.0-5.4) 10^6/ul Hgb 14.6 (14.0-18.0) g/dl Hct 41 L (42-52) % MCV 97 H (80-94) fL MCH 34 H (27-31) pg MCHC 35 (31-36) g/dl RDW 14 (10.5-15) % Plt Count 182 (150-450) 10^3/ul MPV 8 (7.4-10.4) um3 Neut % (Auto) 80.7 (38-83) % Lymph % (Auto) 12.2 L (25-47) % [place] % (Auto) 6.1 (1-9) % Eos % (Auto) 0.4 (0-6) % Baso % (Auto) 0.6 (0-2) % Absolute Neuts (auto) 8.9 H (1.5-7.7) 10^3/ul Absolute Lymphs (auto) 1.3 (1.0-4.8) 10^3/ul Absolute Monos (auto) 0.7 (0-0.8) 10^3/ul Absolute Eos (auto) 0 (0-0.6) 10^3/ul Absolute Basos (auto) 0.1 (0-0.2) 10^3/ul Absolute Nucleated RBC 0 10^3/ul Nucleated RBC % 0 INR (Anticoag Therapy) 1.06 (0.89-1.11) APTT 27.8 (26.0-36.3) seconds Sodium 137 (133-145) mmol/L Potassium 4.3 (3.5-5.0) mmol/L Chloride 100 L (101-111) mmol/L Carbon Dioxide 31 (22-32) mmol/L Anion Gap 6 (2-11) mmol/L BUN 14 (6-24) mg/dL Creatinine 1.04 (0.67-1.17) mg/dL Est GFR ( Amer) 96.1 (>60) Est GFR (Non-Af Amer) 74.7 (>60) BUN/Creatinine Ratio 13.5 (8-20) Glucose 114 H (70-100) mg/dL Lactic Acid (0.5-2.0) mmol/L Calcium 9.6 (8.6-10.3) mg/dL Magnesium 1.4 L (1.9-2.7) mg/dL Total Bilirubin 1.20 H (0.2-1.0) mg/dL AST 14 (13-39) U/L ALT 10 (7-52) U/L Alkaline Phosphatase 56 (34-104) U/L Troponin I 0.05 H* (<0.04) ng/mL C-Reactive Protein 10.74 H (< 5.00) mg/L Total Protein 6.6 (6.4-8.9) g/dL Albumin 3.9 (3.2-5.2) g/dL Globulin 2.7 (2-4) g/dL Albumin/Globulin Ratio 1.4 (1-3) Lipase 19 (11.0-82.0) U/L Urine Color Urine Appearance Urine pH (5-9) Ur Specific [place] (1.010-1.030) Urine Protein (Negative) Urine Ketones (Negative) Urine Blood (Negative) Urine Nitrate (Negative) Urine Bilirubin (Negative) Urine Urobilinogen (Negative) Ur Leukocyte Esterase (Negative) Urine Glucose (Negative) Serum Alcohol < 10 (<10) mg/dL 10/14/16 10/14/16 Range/Units 12:42 15:50 WBC (3.5-10.8) 10^3/ul RBC (4.0-5.4) 10^6/ul Hgb (14.0-18.0) g/dl Hct (42-52) % MCV (80-94) fL MCH (27-31) pg MCHC (31-36) g/dl RDW (10.5-15) % Plt Count (150-450) 10^3/ul MPV (7.4-10.4) um3 Neut % (Auto) (38-83) % Lymph % (Auto) (25-47) % [place] % (Auto) (1-9) % Eos % (Auto) (0-6) % Baso % (Auto) (0-2) % Absolute Neuts (auto) (1.5-7.7) 10^3/ul Absolute Lymphs (auto) (1.0-4.8) 10^3/ul Absolute Monos (auto) (0-0.8) 10^3/ul Absolute Eos (auto) (0-0.6) 10^3/ul Absolute Basos (auto) (0-0.2) 10^3/ul Absolute Nucleated RBC 10^3/ul Nucleated RBC % INR (Anticoag Therapy) (0.89-1.11) APTT (26.0-36.3) seconds Sodium (133-145) mmol/L Potassium (3.5-5.0) mmol/L Chloride (101-111) mmol/L Carbon Dioxide (22-32) mmol/L Anion Gap (2-11) mmol/L BUN (6-24) mg/dL Creatinine (0.67-1.17) mg/dL Est GFR ( Amer) (>60) Est GFR (Non-Af Amer) (>60) BUN/Creatinine Ratio (8-20) Glucose (70-100) mg/dL Lactic Acid 1.0 (0.5-2.0) mmol/L Calcium (8.6-10.3) mg/dL Magnesium (1.9-2.7) mg/dL Total Bilirubin (0.2-1.0) mg/dL AST (13-39) U/L ALT (7-52) U/L Alkaline Phosphatase (34-104) U/L Troponin I (<0.04) ng/mL C-Reactive Protein (< 5.00) mg/L Total Protein (6.4-8.9) g/dL Albumin (3.2-5.2) g/dL Globulin (2-4) g/dL Albumin/Globulin Ratio (1-3) Lipase (11.0-82.0) U/L Urine Color Straw Urine Appearance Clear Urine pH 7.0 (5-9) Ur Specific [place] 1.024 (1.010-1.030) Urine Protein Negative (Negative) Urine Ketones Negative (Negative) Urine Blood Negative (Negative) Urine Nitrate Negative (Negative) Urine Bilirubin Negative (Negative) Urine Urobilinogen Negative (Negative) Ur Leukocyte Esterase Negative (Negative) Urine Glucose Negative (Negative) Serum Alcohol (<10) mg/dL Assess/Plan/Problems-Billing Assessment: 51 yo M ho alcohol abuse, CAD, HTN p/w pSBO Patient was NOT here in August for detoxification. That was in August 2015 - Patient Problems (1) SBO (small bowel obstruction) Comment: appreciate surgery assistance advanced to full liquid at lunch can advance tomorrow and likely home if tolerates (2) Alcohol dependence Comment: minumal valium use d/c valium (3) HTN (hypertension) Comment: controlled off meds (4) DVT prophylaxis Comment: SQ heparin
[2016-10-16] MEDS: Latanoprost 0.005%* 2.5 ml BTL LEFT EYE SCH (19:11)
[2016-10-17] MEDS: Heparin VIAL(*) 5000 UNITS/ML VIAL (FIVE THOUSAND) SUBCUT SCH (04:55)
[2016-10-17] MEDS: Pantoprazole IV* 40 MG IV SCH (04:56)
[2016-10-17 08:02] VITALS: BP 108/54
--- NOTE | 2016-10-17 08:38 | PN ---
Progress Note - Progress Note Date of Service: 10/17/16 SOAP: Subjective: Doing well Tolerated full liquids and has no abdominal pain Multiple loose BM's yesterday and last night and is passing flatus He would like to go home Objective: Temp Pulse Resp BP Pulse Ox 98.1 F 59 18 108/54 97 10/17/16 07:09 10/17/16 07:09 10/17/16 07:09 10/17/16 07:09 10/17/16 07:09 PEX: Abdomen is soft and non-distended Bowel sounds are present and normoactive There is no tenderness or guarding Assessment: SBO--resolved--tolerating po Plan: D/C home today No surgical follow up needed Please call with any problems
[2016-10-17] MEDS: Timolol 0.5% OPTH.SOL* BTL BOTH EYES SCH (09:23)
[2016-10-17] MEDS: Multivitamins/Minerals TAB PO SCH (09:23)
--- NOTE | 2016-10-18 15:20 | DS ---
CC: Micki Smith NP* DISCHARGE SUMMARY: DATE OF ADMISSION: 10/14/16 DATE OF DISCHARGE: 10/17/16 PRIMARY CARE PROVIDER: Micki Smith NP. PRINCIPAL DIAGNOSIS: Small bowel obstruction. SECONDARY DIAGNOSES: 1. Alcohol abuse. 2. Suspected chronic obstructive pulmonary disease. 3. Benign prostatic hypertrophy. 4. Hypertension. 5. Anxiety. 6. Gastroesophageal reflux disease. DISCHARGE MEDICATIONS: 1. Meclizine 25 mg p.o. four times a day, p.r.n. dizziness. 2. Travatan Z one drop to left eye at bedtime. 3. Timolol 2 drops to both eyes b.i.d. 4. Albuterol 2 puffs inhaled q.4 hours p.r.n. shortness of breath. 5. Compazine 10 mg p.o. q.8 hours p.r.n. nausea. 6. Lisinopril 5 mg p.o. daily. 7. Omeprazole 40 mg p.o. daily. 8. Zyrtec 10 mg p.o. daily. 9. Xanax 1 mg p.o. q.8 hours p.r.n. anxiety. HOSPITAL COURSE: Mr. Bates is a 51-year-old male who presented to the emergency room on 10/14/16 with complaints of abdominal pain, nausea, and vomiting. The patient has a history of chronic abdominal pain and recurrent nausea for which he is followed by a traveling sales representative. He had been drinking canned llanes coladas until the night prior to admission when he developed worsening abdominal pain in the epigastric region, radiating towards his pelvis. He also had frequent vomiting of brown emesis. The patient presented to the emergency room where he was found to have a CT scan that was suspicious for small bowel obstruction. The patient was admitted and made n.p.o. He did not have an NG tube inserted as his nausea and vomiting did improve with n.p.o. status. Ultimately, with conservative treatments, the patient resolved his small bowel obstructions. He has been advanced to a full liquid diet, which he tolerated very well on the day of discharge. Dr. James has seen the patient in consultation and felt that he was stable for discharge home today, . The patient has been instructed to eat a diet low in fiber for the next couple of weeks and to return to the emergency room if he has any worsened symptoms. On the day of discharge, the patient was awake, alert and oriented, sitting up in bed, in no acute distress. His vital signs were stable and he was afebrile. The patient's cardiac exam revealed a normal S1, S2, with a regular rate and rhythm. His pulmonary exam revealed clear lungs bilaterally. His abdominal exam revealed normal bowel sounds with his abdomen being soft, nontender and nondistended. FOLLOWUP CONCERNS: The patient is stable for discharge home today, 10/17/16. ACTIVITY LEVEL: As tolerated. DIET: Regular, low roughage. CONDITION ON DISCHARGE: Stable. FOLLOWUP: The patient should follow up with Micki Smith NP., in the next 4 to 7 days. TIME SPENT: 35 minutes were spent discharging this patient. [id number] #: [id number] MTDD
== END 2016-10-17 11:20 | disposition home or self-care (01) | DRG 247 ==
LOC: ED 11:21 → MEDTELE 16:24 → OBSVTOIN 10-15 09:30
PROVIDERS: ADMIT Internal Medicine; ATTEND Hospitalist
DX: K56.60 Unspecified intestinal obstruction (principal); I11.0 Hypertensive heart disease with heart failure; I50.9 Heart failure, unspecified; E78.00 Pure hypercholesterolemia, unspecified; J44.9 Chronic obstructive pulmonary disease, unspecified; I34.1 Nonrheumatic mitral (valve) prolapse; K21.9 Gastro-esophageal reflux disease without esophagitis; M06.9 Rheumatoid arthritis, unspecified; F41.9 Anxiety disorder, unspecified; F32.9 Major depressive disorder, single episode, unspecified; F17.200 Nicotine dependence, unspecified, uncomplicated; I25.10 Atherosclerotic heart disease of native coronary artery without angina pectoris; F10.20 Alcohol dependence, uncomplicated; Y90.9 Presence of alcohol in blood, level not specified; H40.9 Unspecified glaucoma; G62.9 Polyneuropathy, unspecified; G43.909 Migraine, unspecified, not intractable, without status migrainosus; Z85.831 Personal history of malignant neoplasm of soft tissue; Z98.42 Cataract extraction status, left eye; Z82.49 Family history of ischemic heart disease and other diseases of the circulatory system; Z88.1 Allergy status to other antibiotic agents; Z88.2 Allergy status to sulfonamides; I25.2 Old myocardial infarction; Z88.8 Allergy status to other drugs, medicaments and biological substances; Z87.442 Personal history of urinary calculi; Z98.41 Cataract extraction status, right eye; Z83.3 Family history of diabetes mellitus; Z90.49 Acquired absence of other specified parts of digestive tract
CPT/HCPCS: 36415; 74020; 74177; 80048; 80053; 80320; 81003; 83605; 83690; 83735; 84484; 85025; 85610; 85730; 86140; 93005; 96374; 96375; 99284; 99406; A9270-GY; G0378; G0480; J1644; J2270; J2405; Q9967